=== PATIENT | female | born 1990 | race Caucasian/White ===

== ENCOUNTER 2020-07-28 09:21 | Emergency (ER) | payer OTHER ==
[~2020-07-28] VITALS: Ht 165.1 cm; Wt 72.1 kg
[2020-07-28] MEDS ORDERED: IV NORMAL SALINE 1,000ML 1,000 ML IV ONE (09:45)
[2020-07-28] MEDS ORDERED: IOHEXOL 300 MG/ML 75 ML VIAL. IV ONE (10:00)
--- NOTE | 2020-07-28 10:07 | PHYS DOC ---
Past History Past Medical History: No Pertinent History Past Surgical History: Other Additional Past Surgical Histo: BREAST LUMPECTOMY; D&C Smoking: Non-smoker Alcohol Use: None Drug Use: None General Adult EDM: Chief Complaint: PELVIC PAIN HPI: HPI: Patient is a 30 year old female who presents with pelvic pain. She states that started suddenly this morning while she was lying in bed. She describes it as a constant pain that is worse on the right. She states it was a 10 out of 10 this morning, she took Tylenol and it is now 6 out of 10. Her last menstrual period was 2-1/2 weeks ago, she is on oral contraceptives. She has previously had 4 vaginal births, and 1 miscarriage 7 years ago that required a D&C. She states a few months ago she was seen for her screening Pap smear, discussed some crampy pelvic pain with her OB, and was scheduled to get an outpatient ultrasound. She states she has not been able to have the ultrasound yet due to her 's work and lack of childcare for her 4 kids. She states she has had this pain one other time before that occurred after sexual intercourse a few weeks ago, that resolved without treatment. This pain she states was similar, but she was more concerned because she was unaware of any etiology that may be causing it this time. She states this does not feel like normal crampy menstrual pain, it is more similar to when she was laboring with her children. She denies any nausea or vomiting, states she has had some constipation which is normal for her. No bleeding or vaginal discharge, no pain or burning with urination. Review of Systems: Review of Systems: Constitutional: Denies fever or chills Eyes: Denies redness or eye pain HENT: Denies nasal congestion or sore throat Respiratory: Denies cough or shortness of breath Cardiovascular: Denies chest pain or palpitations GI: Denies nausea, or vomiting. Currently states her pain is in her lower pelvic region, worse on the right than the left. : Denies dysuria or hematuria Musculoskeletal: Denies back pain or joint pain Integument: Denies rash or skin lesions Neurologic: Denies headache, focal weakness or sensory changes Complete systems were reviewed and found to be within normal limits, except as documented in this note. Current Medications: Current Meds: Current Medications Medications (Trade) Dose Ordered Sig/Boom Start Time Stop Time Status Last Admin Dose Admin Iohexol (Omnipaque 300 Mg/ml) 75 ml 1X ONCE 07/28/20 10:00 07/28/20 10:01 Sodium Chloride 1,000 ml @ 1,000 mls/hr 1X ONCE 07/28/20 09:45 07/28/20 10:44 Allergies: Allergies: Allergies Coded Allergies Type Severity Reaction Last Updated Verified No Known Drug Allergies 07/28/20 No Physical Exam: PE: Constitutional: Well developed, well nourished, no acute distress, non-toxic appearance HENT: Normocephalic, atraumatic Eyes: Conjunctiva normal, no discharge Neck: Normal range of motion, no tenderness, supple Lungs & Thorax: No respiratory distress, equal chest rise and fall Abdomen: Soft, right lower quadrant tenderness, no guarding, reports positive McBurney point Skin: Warm, dry, no erythema, no rash Back: No tenderness, no CVA tenderness Extremities: No tenderness, ROM intact, no edema Neurologic: Alert and oriented X 3, normal motor function, normal sensory function, no focal deficits noted Psychologic: Affect normal, judgment normal Current Patient Data: Vital Signs: Vital Signs Date Time Temp Pulse Resp B/P (MAP) Pulse Ox O2 Delivery O2 Flow Rate FiO2 07/28/20 09:30 99.0 83 20 127/81 (96) 97 Room Air EKG: EKG: [] Radiology/Procedures: Radiology/Procedures: PROCEDURE: CT ABD PELV W/ IV CONTRST ONLY Exam: CT abdomen/pelvis with intravenous contrast Indication: Right lower quadrant pain Comparison: None Technique: Helical CT imaging performed of the abdomen and pelvis after the intravenous administration of 75 mL Omnipaque 300 contrast. Sagittal and coronal reformats were obtained. One or more of the following individualized dose reduction techniques were utilized for this examination: 1. Automated exposure control 2. Adjustment of the mA and/or kV according to patient size 3. Use of iterative reconstruction technique. Findings: Lower chest: Normal. Liver: There is a 4 mm hypodensity in the anterior right hepatic lobe, too small to characterize but likely a cyst or hemangioma. The liver is otherwise unremarkable.. Gallbladder/Biliary Tree: Normal. Pancreas: Normal. Spleen: Normal. Adrenal Glands: Normal. Kidneys, ureters, and bladder: Normal. Reproductive Organs: There is a well-circumscribed fat density lesion in the right adnexa with some soft tissue component and calcification, consistent with a dermoid cyst. Which measures 3.3 x 2.9 cm. There is a 4 cm simple cyst in the left ovary. Uterus is normal. Stomach, small bowel, and colon: The stomach and small bowel are normal. The appendix is normal (image [id number], series 2). The colon is normal. Vasculature: Abdominal aorta is normal in caliber. Lymph Nodes: No lymphadenopathy. Peritoneum and retroperitoneum: Small amount of simple free fluid in the pelvis. No free air. Bones: No acute osseous abnormality. Impression: 1. Normal appendix. 2. 3.3 cm dermoid cyst in the right ovary. 3. 4 cm simple left ovarian cyst. 4. Small volume free fluid in the pelvis, likely physiologic. Electronically signed by: Aicha Duarte MD (07/28/2020 10:45 AM) [id number] PROCEDURE: PELVIS COMPLETE Exam performed: Pelvic Ultrasound. Indication: Pelvic pain right greater than left, history of ovarian cysts with a dermoid cyst seen in the right ovary on a recent CT scan. Date of Service: 07/28/2020. Comparison: CT abdomen and pelvis from earlier today Technique: Transabdominal Findings: The uterus is anteverted and measures9.4 x 5.3 x 3.4 cm. The endometrial stripe 7.4 mm The right ovary measures 3.7 x 3.7 x 3.8 cm and contains a complex solid lesion measuring 2.6 x 2.9 x 3.7 cm correlating with a dermoid cyst The Left ovary measures 4.4 x 4.6 x 4.7 cm. There is a simple cyst in the left ovary measuring 4.3 x 3.8 x 3.2 cm. Symmetric vascularity seen in both ovaries. There is small amount of free fluid in the posterior cul-de-sac Impression: 1. Simple left ovarian cyst and dermoid cyst in the right ovary redemonstrated. 2. Small amount of free fluid in the posterior cul-de-sac is likely physiological Electronically signed by: Lula Germain MD (07/28/2020 11:55 AM) [facility] Course & Med Decision Making: Course & Med Decision Making Pertinent Labs and Imaging studies reviewed. (See chart for details) Marianela Ahmadi is a 30-year-old female presents today with pelvic pain. Her pain is more localized to the right side. Her CT showed no signs of appendicitis, but did show a probable dermoid cyst on the right ovary and a simple cyst present on left ovary. Due to the cyst increasing her risk of ovarian torsion, a transvaginal US was indicated. The US did again show the presence of the cyst, but no signs of ovarian torsion. Her pain has decreased substantially since she has been in the ED. She states she has anti-nausea and pain medication at home and did not need new prescriptions for these medications. She is agreeable to discharge and will follow up with her OB-[facility] for further management of her cyst. We discussed strict return precautions if she has similar pelvic pain like she experienced this morning that is unresolving, which could be an indication of possible torsion and would need emergent surgical intervention. She expressed understanding of her condition and had no further questions at this time. Patient stable for discharge with outpatient follow-up with PCP/[facility]. Discussed findings and plan with patient, who acknowledges understanding and agreement. Hiwot Disclaimer: Hiwot Disclaimer: This electronic medical record was generated, in whole or in part, using a voice recognition dictation system. Departure Departure: Impression: Primary Impression: Pelvic pain Additional Impressions: Ovarian cyst Qualified Codes: N83.202 - Unspecified ovarian cyst, left side Dermoid cyst of right ovary Disposition: 01 DC HOME SELF CARE/HOMELESS Condition: STABLE Referrals: AISHWARYA MARES MD (PCP) Patient Instructions: Ovarian Cyst, [id number], Pelvic Pain, Female, [id number] JOSE L WARNER DO Jul 28, 2020 10:07
[2020-07-28 10:10] LABS: BASO # 0.1 x10^3/uL (0.0-0.2); BASO % 1 % (0-3); EOS # 0.1 x10^3/uL (0.0-0.7); EOS % 2 % (0-3); HEMATOCRIT 41.9 % (36.0-47.0); HEMOGLOBIN 14.2 g/dL (12.0-15.5); LYMPH % 27 % (24-48); MEAN CORPUSCULAR HEMOGLOBIN 31 pg (25-35); MEAN CORPUSCULAR HGB CONC 34 g/dL (31-37); MEAN CORPUSCULAR VOLUME 92 fL (79-100); MONO # 0.5 x10^3/uL (0.0-1.1); MONO % 7 % (0-9); NEUT # 4.8 x10^3uL (1.8-7.7); NEUT % 64 % (31-73); PLATELET COUNT 258 x10^3/uL (140-400); RED BLOOD COUNT 4.58 x10^6/uL (3.50-5.40); RED CELL DISTRIBUTION WIDTH 12.7 % (11.5-14.5); WHITE BLOOD COUNT 7.6 x10^3/uL (4.0-11.0)
[2020-07-28 10:33] LABS: GFR 64.3; POTASSIUM 3.5 mmol/L (3.5-5.1)
[2020-07-28 10:39] LABS: ALBUMIN 3.6 g/dL (3.4-5.0); ALBUMIN/GLOBULIN RATIO 0.9 (1.0-1.7); TOTAL BILIRUBIN 0.3 mg/dL (0.2-1.0); TOTAL PROTEIN 7.4 g/dL (6.4-8.2)
--- NOTE | 2020-07-28 10:48 | RAD ---
Exam: CT abdomen/pelvis with intravenous contrast Indication: Right lower quadrant pain Comparison: None Technique: Helical CT imaging performed of the abdomen and pelvis after the intravenous administratio n of 75 mL Omnipaque 300 contrast. Sagittal and coronal reformats were obtained. One or more of the following individualized dose reduction techniques were utilized for this examinat ion: 1. Automated exposure control 2. Adjustment of the mA and/or kV according to patient size 3. Use of iterative reconstruction technique. Findings: Lower chest: Normal. Liver: There is a 4 mm hypodensity in the anterior right hepatic lobe, too small to characterize but likely a cyst or hemangioma. The liver is otherwise unremarkable.. Gallbladder/Biliary Tree: Normal. Pancreas: Normal. Spleen: Normal. Adrenal Glands: Normal. Kidneys, ureters, and bladder: Normal. Reproductive Organs: There is a well-circumscribed fat density lesion in the right adnexa with some s oft tissue component and calcification, consistent with a dermoid cyst. Which measures 3.3 x 2.9 cm. There is a 4 cm simple cyst in the left ovary. Uterus is normal. Stomach, small bowel, and colon: The stomach and small bowel are normal. The appendix is normal (imag e [id number], series 2). The colon is normal. Vasculature: Abdominal aorta is normal in caliber. Lymph Nodes: No lymphadenopathy. Peritoneum and retroperitoneum: Small amount of simple free fluid in the pelvis. No free air. Bones: No acute osseous abnormality. Impression: 1. Normal appendix. 2. 3.3 cm dermoid cyst in the right ovary. 3. 4 cm simple left ovarian cyst. 4. Small volume free fluid in the pelvis, likely physiologic. Electronically signed by: Aicha Duarte MD (07/28/2020 10:45 AM) [id number]
[2020-07-28 10:55] LABS: BACTERIA,URINE FEW /HPF (0-FEW); BILIRUBIN,URINE NEG (NEG); CLARITY,URINE HAZY; COLOR,URINE YELLOW; GLUCOSE,URINE NEG (NEG); NITRITE,URINE NEG (NEG); SQUAMOUS EPITHELIAL CELL,UR MANY /LPF; UROBILINOGEN,URINE 0.2 mg/dL (0.2 mg/dL)
--- NOTE | 2020-07-28 11:58 | RAD ---
Exam performed: Pelvic Ultrasound. Indication: Pelvic pain right greater than left, history of ovarian cysts with a dermoid cyst seen in the right ovary on a recent CT scan. Date of Service: 07/28/2020. Comparison: CT abdomen and pelvis from earlier today Technique: Transabdominal Findings: The uterus is anteverted and measures9.4 x 5.3 x 3.4 cm. The endometrial stripe 7.4 mm The right ovary measures 3.7 x 3.7 x 3.8 cm and contains a complex solid lesion measuring 2.6 x 2.9 x 3.7 cm correlating with a dermoid cyst The Left ovary measures 4.4 x 4.6 x 4.7 cm. There is a simple cyst in the left ovary measuring 4.3 x 3.8 x 3.2 cm. Symmetric vascularity seen in both ovaries. There is small amount of free fluid in the posterior cul-de-sac Impression: 1. Simple left ovarian cyst and dermoid cyst in the right ovary redemonstrated. 2. Small amount of free fluid in the posterior cul-de-sac is likely physiological Electronically signed by: Lula Germain MD (07/28/2020 11:55 AM) [facility]
[2020-07-28 12:22] VITALS: BP 110/81
== END 2020-07-28 12:25 | disposition home or self-care (01) ==
LOC: ER 09:21
DX: D27.0 Benign neoplasm of right ovary (principal); N83.202 Unspecified ovarian cyst, left side
CPT/HCPCS: 36415; 74177; 76856; 80053; 81001; 81025; 83690; 83735; 85025; 87086; 96360; 99285; J7030; Q9967